=== PATIENT | female | born 1965 | race African-American/Black ===

== ENCOUNTER 2018-01-23 09:34 | Emergency (ER) | payer SELFPAY ==
[~2018-01-23] VITALS: Ht 162.6 cm; Wt 87.0 kg
[2018-01-23] MEDS ORDERED: IBUPROFEN 600MG TABLET PO ONE (12:45)
[2018-01-23] MEDS ORDERED: BACITRACIN ZINC OINT UDPKT TOP ONE (12:45)
[2018-01-23] MEDS ORDERED: LIDOCAINE HCL 1% 20ML VIAL (Pyxis) INJ MC ONE (12:45)
[2018-01-23] MEDS ORDERED: TETANUS, DIPHTHERIA, PERTUSSIS VAC/PF 0.5ML (>7YR OLD) IM ONE (12:45)
[2018-01-23 14:21] VITALS: BP 143/60
== END 2018-01-23 14:34 | disposition home or self-care (01) ==
LOC: ER 11:05
DX: S61.411A Laceration without foreign body of right hand, initial encounter (principal); W26.9XXA Contact with unspecified sharp object(s), initial encounter; Z90.710 Acquired absence of both cervix and uterus; Z90.49 Acquired absence of other specified parts of digestive tract; Y93.89 Activity, other specified; Y92.89 Other specified places as the place of occurrence of the external cause; Y99.8 Other external cause status
CPT/HCPCS: 12002; 73130; 90471; 90715; 99284; J3490